=== PATIENT | male | born 2000 ===

== ENCOUNTER 2024-10-17 12:53 | Emergency (ER) | payer SELFPAY ==
[~2024-10-17] VITALS: Ht 172.7 cm; Wt 72.6 kg
== END 2024-10-17 15:48 | disposition home or self-care (01) ==
LOC: ER 12:53
DX: S61.215A Laceration without foreign body of left ring finger without damage to nail, initial encounter (principal); W26.8XXA Contact with other sharp object(s), not elsewhere classified, initial encounter
CPT/HCPCS: 99282